=== PATIENT | female | born 1985 | race Caucasian/White ===

== ENCOUNTER 2022-07-30 04:03 | Emergency (ER) | payer OTHER, SELFPAY ==
[2022-07-30 04:10] VITALS: PULSE 97; RESP 22; TEMP 37.9
--- NOTE | 2022-07-30 04:27 | PC.NURSE ---
still at BS
[2022-07-30] MEDS: AZITHROMYCIN 250 MG TABLET 500 MG PO (04:34)
[2022-07-30 04:38] VITALS: BP 125/78; PULSE 96; RESP 22; O2SAT 98
--- NOTE | 2022-07-30 04:45 | ED_ITS ---
HPI - General Adult General Chief complaint: Chest Pain Stated complaint: Back/chest pains, 36wks Time Seen by Provider: 07/30/22 04:26 History of Present Illness HPI narrative: Patient is a 36-year-old at 36 weeks gestation presents with pleuritic left- sided chest pain that has gotten much worse over the past two days. She has had a cough for a month. She has been tested for COVID on several occasions. No fevers or chills. She does cough up some phlegm. She is not wheezy. She received her 1st dose of betamethasone yesterday and will be getting a 2nd dose later today. She is scheduled for an induction on 07/31/2022. She will be delivering at the [facility]. She is with twins. She is not a smoker. Tonight the pain got so severe that she could not sleep and had to come in for evaluation. Related Data Previous Rx's Medication Instructions Recorded acetaminophen 300 mg-codeine 30 mg 1 tab PO Q6H #10 tabs 07/30/22 tablet azithromycin 250 mg tablet 250 mg PO DAILY 4 days #4 tabs 07/30/22 (Zithromax) Allergies Allergy/AdvReac Type Severity Reaction Status Date / Time No Known Drug Allergies Allergy Verified 07/30/22 04:36 Review of Systems Status of ROS: Reports: 10 or more systems reviewed and unremarkable except as noted in History and below PFSH PFS Social History Smoking Status: Never smoker Do you use any of these nicotine containing products: None How often do you have a drink containing alcohol: never AUDIT-C Alcohol total score: 0 Non-prescribed substance use: denies use Exam Narrative: Exam Narrative: Vitals noted. She is uncomfortable with deep breathing. HEENT: Conjunctiva clear. Tympanic membranes are pearly white bilaterally. Posterior pharynx is clear without erythema or exudate. Neck is supple without adenopathy, thyromegaly.. Lungs: Clear to auscultation in all singh. No wheezes, rales, rhonchi. She has pain with every deep breath. No palpable rib tenderness. Heart: Regular rate and rhythm without murmur. Abdomen: Soft and nontender. No guarding, rigidity, rebound. Bowel sounds are normal. No palpable masses. Extremities: No cyanosis. 1+ edema. Good distal pulses. Negative Randy sign. No calf tenderness. Skin: No abnormalities noted of the exposed skin. Neurologic: Awake, alert, fully oriented. Neurologic exam is nonfocal. One of the OB nurses came down and monitored baby's and had no concerns. Const: Vital Signs, click to edit/add: Vital Signs - 24 hr 07/30/22 04:10 07/30/22 04:38 Temperature 100.2 F H Pulse Rate [Pulse Oximeter] 97 96 Respiratory Rate 22 22 Blood Pressure [Le ft Upper Arm] 125/78 Pulse Oximetry 98 Oxygen Delivery Me thod Room Air Room Air Course Course Hospital Course: Patient was seen and examined. She has pain with deep inspiration. Her lungs are clear. Her vitals are normal other than a low-grade fever. She is oxygenating well. She is given Tylenol No. 3 two tablets and Zithromax 500 mg orally. Reevaluation(s) Reevaluation #1: Patient feels significantly better after the medications. She is not coughing as much. Vitals remained stable. Oxygen level is normal. Vital Signs Vital signs: Initial Vital Signs Temperature 100.2 F H 07/30/22 04:10 Temperature Source Temporal Artery Scan 07/30/22 04:10 Pulse Rate 97 07/30/22 04:10 Respiratory Rate 22 07/30/22 04:10 Oxygen Delivery Method 07/30/22 04:10 Vital Signs Temperature 100.2 F H 07/30/22 04:10 Pulse Rate 97 07/30/22 04:10 Respiratory Rate 22 07/30/22 04:10 Oxygen Delivery Method 07/30/22 04:10 Temperature 100.2 F H 07/30/22 04:10 Pulse Rate 96 07/30/22 04:38 Respiratory Rate 22 07/30/22 04:38 Blood Pressure 125/78 07/30/22 04:38 Pulse Oximetry 98 07/30/22 04:38 Oxygen Delivery Method 07/30/22 04:38 Discharge Plan Discharge Clinical Impression: Pleuritic chest pain, Twin in third trimester Patient Disposition: Home, Self-Care Condition: Improved Additional Instructions: Use Tylenol or Tylenol No. 3 for pain. Complete a course of Zithromax. Follow- up for your 2nd betamethasone injection later today. Follow-up for your induction tomorrow. Prescriptions: New azithromycin [Zithromax] 250 mg tablet 250 mg PO DAILY 4 Days Qty: 4 0RF Taper: Z-ZHOU 500 mg Q24H for 1 Day and 0 Hour 250 mg Q24H for 4 Days and 0 Hour acetaminophen-codeine 300-30 mg tablet 1 tab PO Q6H Qty: 10 0RF Follow Up/Referrals: Provider,Not a Local [Primary Care Provider] - Stand Alone Forms: [employer] Info Instructions
--- NOTE | 2022-07-30 05:20 | PC.NURSE ---
Written and verbal D/C per MD and RN. Pt able to get up on her own. I feel so much better.
[2022-07-30 05:27] VITALS: BP 119/58; PULSE 101; O2SAT 97
== END 2022-07-30 05:20 | disposition home or self-care (01) ==
PROVIDERS: Emergency Provider Family Medicine
DX: R07.81 Pleurodynia (principal); J20.9 Acute bronchitis, unspecified; Z33.1 Pregnant state, incidental
CPT/HCPCS: 99283; A9270

== ENCOUNTER 2023-09-01 18:39 | Outpatient (CLI) | payer OTHER, SELFPAY | END 2023-09-01 18:40 | disposition home or self-care (01) | PROVIDERS: Visit Provider Registered Nurse | DX: Z01.419 Encounter for gynecological examination (general) (routine) without abnormal findings (principal); E66.9 Obesity, unspecified; N92.0 Excessive and frequent menstruation with regular cycle | CPT/HCPCS: 80061; 84443 ==

== ENCOUNTER 2023-09-22 15:56 | Outpatient (CLI) | payer OTHER, SELFPAY ==
--- NOTE | 2023-09-22 16:00 | CRLHL7_ITS ---
For Patients: As a result of the Century Cures Act, medical imaging exams and procedure reports are released immediately into your electronic medical record. You may view this report before your referring provider. If you have questions, please contact your health care provider. INDICATION: EXCESSIVE AND FREQUENT MENSTRUATION COMPARISON: 02/14/2014 TECHNIQUE: 2D dennis scale and color Doppler images were acquired of the pelvis using a transabdominal and transvaginal approach. FINDINGS: Right uterine fibroid is present posteriorly measuring 3.4 x 2.9 x 3.7 cm. Uterus measures 9.1 cm in length by 5.7 cm in AP diameter by 6.0 cm in transverse dimension. The myometrium has a normal uniform echotexture. The endometrial lining appears normal and measures 10 mm in composite thickness. The right ovary measures 4.2 x 1.4 x 2.0 cm in size and the left ovary measures 4.1 x 2.1 x 2.1 cm. The ovaries demonstrate normal arterial and venous blood flow on color Doppler analysis. Trace pelvic free fluid noted. A few scattered cervical nabothian cysts. IMPRESSION: Uterine fibroid measuring 3.4 x 2.9 x 3.7 cm. Endometrial thickness 1 cm. Dictated by Brandon Ortiz MD @ 09/23/2023 10:20:12 AM ----- ADDENDUM ----- Addendum: The fibroid is intramural and is not submucosal. Dictated by Brandon Ortiz MD @ Sep 24 2023 9:23AM (Electronically Signed)
== END 2023-09-22 15:57 | disposition home or self-care (01) ==
LOC: US 15:57
PROVIDERS: Visit Provider Registered Nurse
DX: N92.0 Excessive and frequent menstruation with regular cycle (principal); D25.9 Leiomyoma of uterus, unspecified
CPT/HCPCS: 76830; 76856